=== PATIENT | male | born 1960 | race Asian ===

== ENCOUNTER 2022-11-02 19:18 | Outpatient (CLI) | payer OTHER | END 2022-11-02 19:19 | disposition critical access hospital (66) | LOC: EMS 19:18 | DX: S01.112A Laceration without foreign body of left eyelid and periocular area, initial encounter (principal); W01.198A Fall on same level from slipping, tripping and stumbling with subsequent striking against other object, initial encounter; Y92.009 Unspecified place in unspecified non-institutional (private) residence as the place of occurrence of the external cause | CPT/HCPCS: A0425; A0429 ==

== ENCOUNTER 2022-11-02 19:40 | Emergency (ER) | payer OTHER ==
[2022-11-02] MEDS ORDERED: LIDOCAINE 1%-EPI 1:100000 10 ML MDV SUBQ STA (20:15)
--- NOTE | 2022-11-02 20:15 | ED Physician Documentation ---
History of Present Illness - Stated complaint Stated Complaint: GLF, ETOH, LEFT EYEBROW LAC - Chief complaint Chief Complaint: Trauma Hd/Nk - Additonal information Additional information: Patient 62-year-old male presenting to the emergency department with head injury. Has been drinking today. Reports multiple beers. Denies every day drinking. Reports slipped on some water and struck his face. Saw stars but denies loss of conscious. Denies use of blood thinning medications. Unknown last tetanus. Review of Systems Constitutional: denies: Fever, Myalgias Ears: denies: Loss of hearing Nose: denies: Rhinorrhea / runny nose Throat: denies: Dental pain / toothache Cardiac: denies: Chest pain / pressure Respiratory: denies: Dyspnea GI: denies: Abdominal Pain : denies: Dysuria Skin: denies: Rash Musculoskeletal: denies: Neck pain PD PAST MEDICAL HISTORY - Past Medical History Past Medical History: Yes Cardiovascular: Hypertension - Past Surgical History Past Surgical History: No - Present Medications Home Medications: Ambulatory Orders Medication Instructions Recorded Confirmed No Known Home Medications 11/02/22 11/02/22 - Allergies Allergies/Adverse Reactions: Allergies Allergy/AdvReac Type Severity Reaction Status Date / Time No Known Drug Allergies Allergy Verified 11/02/22 19:45 - Social History Does the pt smoke?: No Smoking Status: Never smoker Does the pt drink ETOH?: Yes - Immunizations Immunizations are current?: No Immunizations: TDAP >10years/unknown PD ED PE NORMAL - Vitals Vital signs reviewed: Yes - General General: Alert and oriented X 3 - HEENT HEENT: Other (5 cm gaping laceration over the right eyebrow. Negative hemotympanum, negative fitzgerlad sign, negative raccoon sign) - Neck Neck: Supple, no meningeal sign, Other - Cardiac Cardiac: RRR - Respiratory Respiratory: No respiratory distress - Abdomen Abdomen: Normal bowel sounds - Rectal Rectal: Deferred - Derm Derm: Normal color - Extremities Extremities: No deformity - Neuro Neuro: Alert and oriented X 3, patient safety sitter 2-12 intact, No motor deficit, Normal speech Results - Vitals Vitals: Vital Signs - 24 hr 11/02/22 19:45 Temperature 36.8 C Heart Rate 89 Respiratory 16 Rate Blood Pressure 142/92 H O2 Saturation 99 Oxygen O2 Source Room air Procedures - Laceration (location) Scalp Length in cm: 5 Wound type: Linear, Into subcut fat, Clean Neurovascular status: Sensory intact Anesthesia: Lidocaine 1% with epi, Volume - enter ml (5) Wound preparation: Irrigated copiously NS Skin layer closure: Nylon, Sutures - enter # (7) Other: Patient tolerated well PD Medical Decision Making - ED course Complexity details: reviewed results, d/w patient, d/w brand sales consultant ED course: Patient 62-year-old male presenting to the emergency department with head injury after ground-level fall earlier this evening. Arrives after slipping on some water and falling forward, obvious large laceration above his right eyebrow. Unclear loss of consciousness. Head CT demonstrated a an abnormal calcification at the right ventral horn. This is concerning for possible bleed in setting of trauma. Discussed with [place] who recommended 4-hour interval repeat CT. Repeat CT benign. Patient monitored carefully with no focal or lateralizing neurologic deficits. Wound repaired as outlined in procedure note above. Wound care and follow-up instructions given. Patient encouraged to drink only in moderation in the future and return to the emergency department for any new or worsening symptoms. Departure - Departure Disposition: 01 Home, Self Care Clinical Impression: Abnormal head CT Fall Qualifiers: Encounter type: initial encounter Qualified Code(s): W19.XXXA - Unspecified fall, initial encounter Scalp laceration Qualifiers: Encounter type: initial encounter Qualified Code(s): S01.01XA - Laceration without foreign body of scalp, initial encounter Instructions: ED Laceration Scalp Stitch Or Stap Comments: Thank you for allowing us to care for you today [facility]. The repeat head CT did not show any indications of bleeding. This is very reassuring. You will need to have your stitches removed in approximately 7 day s. I recommend twice daily application of a topical antibiotic ointment such as bacitracin or Neosporin. These are available [id number]. You can return to the emergency department or follow-up with primary care or urgent care for suture removal. If it anytime you have new or worsening symptoms please not hesitate to return. Forms: PCP List
--- NOTE | 2022-11-02 21:42 | CT Report ---
PROCEDURE: HEAD WO INDICATIONS: fall TECHNIQUE: Noncontrast 4.5 mm thick angled axial sections acquired from the foramen magnum to the vertex. For r adiation dose reduction, the following was used: automated exposure control, adjustment of mA and/or kV according to patient size. COMPARISON: CT cervical spine 11/02/2022 FINDINGS: Image quality: Excellent. CSF spaces: Basal cisterns are patent. No extra-axial fluid collections. Ventricles are normal in size and shape. Brain: No midline shift. 3 mm Hyperdensity is present adjacent to the right frontal horn. Portions o f it are markedly hyperdense with slightly less prominent appearance more inferiorly. Vicente-white adry er interface is normal. Mild atrophy and chronic microvascular ischemic effusions are present Skull and face: Calvarium and visualized facial bones are intact, without suspicious lesions. Right frontal scalp hematoma. Sinuses: Visualized sinuses and mastoids are clear. IMPRESSION: 1. Hyperdensity is present adjacent to the right frontal horn. While this is suspected to represent s omewhat atypical appearance of calcification, no priors are available for comparison. Given history o f trauma, hemorrhage cannot be definitively excluded. Recommend clinical correlation and follow-up CT in 6 hours to document stability. 2. Mild atrophy and chronic microvascular ischemic changes. Reviewed by: Felicia Cordoba MD on 11/02/2022 9:41 PM PDT Approved by: Felicia Cordoba MD on 11/02/2022 9:41 PM PDT Station ID: [id number]
--- NOTE | 2022-11-02 21:44 | CT Report ---
PROCEDURE: CERVICAL SPINE WO INDICATIONS: Fall TECHNIQUE: Noncontrast 3 mm thick sections acquired from the skull base to the T4 level. Sagittal and coronal r eformats were then constructed. For radiation dose reduction, the following was used: automated exp osure control, adjustment of mA and/or kV according to patient size. COMPARISON: CTA head 11/02/2022 FINDINGS: Image quality: Excellent. Bones: No fractures or dislocations. Visualized superior ribs are intact. Multilevel degenerative changes including prominent disc space narrowing at C6-7. Soft tissues: Prevertebral soft tissues are normal in thickness. No paravertebral hematomas. No ap ical pneumothoraces. IMPRESSION: Multilevel degenerative changes without visualized fracture. Reviewed by: Felicia Cordoba MD on 11/02/2022 9:43 PM PDT Approved by: Felicia Cordoba MD on 11/02/2022 9:43 PM PDT Station ID: [id number]
[2022-11-02] MEDS ORDERED: LIDOCAINE MPF 1%-EPI 1:200000 10 ML VIAL SUBQ STA (21:46)
[2022-11-02] MEDS ORDERED: LIDOCAINE 2%-EPI 1:100000 20 ML MDV SUBQ STA (22:07)
[2022-11-02] MEDS ORDERED: LIDOCAINE 2%-EPI 1:100000 20 ML MDV ONE (22:54)
[2022-11-02] MEDS ORDERED: LIDOCAINE 1%-EPI 1:100000 20 ML MDV ONE (23:04)
--- NOTE | 2022-11-03 01:32 | CT Report ---
PROCEDURE: HEAD WO INDICATIONS: Interval evaluation TECHNIQUE: Noncontrast 4.5 mm thick angled axial sections acquired from the foramen magnum to the vertex. For r adiation dose reduction, the following was used: automated exposure control, adjustment of mA and/or kV according to patient size. COMPARISON: CT head 11/02/2022. FINDINGS: Image quality: Excellent. CSF spaces: There is mild cerebral volume loss with prominence of the ventricles and sulci. Basal ci sterns are patent. No extra-axial fluid collections. Brain: A region of periventricular hypodensity adjacent to the frontal horn of the right lateral ventricle a ppears unchanged and is consistent with calcification. No definite intracranial hemorrhage, mass, or mass effect. Vicente-white matter interface is preserved. There are subcortical and periventricular whit e matter hypodensities consistent with mild chronic small vessel ischemic changes. Skull and face: Calvarium and visualized facial bones are intact, without suspicious lesions. Sinuses: Visualized sinuses and mastoids are clear. IMPRESSION: 1. No definite acute intracranial abnormality. 2. Linear high density adjacent to the right ventricle is unchanged and compatible with calcification , possibly from sequela of prior infection. Reviewed by: Zhao Jama MD on 11/03/2022 1:31 AM PDT Approved by: Zhao Jama MD on 11/03/2022 1:31 AM PDT Station ID: [id number]
[2022-11-03 01:54] VITALS: BP 142/79; O2SAT 98
== END 2022-11-03 01:45 | disposition home or self-care (01) ==
LOC: EDUNIT# → ED 19:40
DX: S01.01XA Laceration without foreign body of scalp, initial encounter (principal); W01.0XXA Fall on same level from slipping, tripping and stumbling without subsequent striking against object, initial encounter; R93.0 Abnormal findings on diagnostic imaging of skull and head, not elsewhere classified; I10 Essential (primary) hypertension
CPT/HCPCS: 12002; 80053; 80320; 83690; 85025; 85610; 99283; 99284